=== PATIENT | male | born 1990 | race Caucasian/White ===

== ENCOUNTER → 2016-05-24 | Outpatient (CLI) | payer OTHER ==
--- NOTE | 2016-05-25 10:31 | SLEEPCENT ---
DATE OF STUDY: 05/24/2016 ORDERING PROVIDER: NIKOLE Werner Nocturnal polysomnography was performed for evaluation of sleep apnea syndrome symptoms in this patient with a history of snoring and excessive somnolence. 8 hours and 11 minutes of data were reviewed. There were 436 minutes of sleep identified. Sleep latency was mildly prolonged at 23 minutes. Rapid eye movement (REM) latency more so prolonged at 140 minutes. Sleep architecture showed fair progression, some fragmentation early in the study. There were three REM periods or progressive duration. Overall sleep efficiency was 89.6%. The patient's electrocardiogram (EKG) showed a sinus rhythm with an average heart rate of 56 beats per minute. Electroencephalogram (EEG) showed reasonably normal waveforms with for awake and sleep. No focal events were identified. There were only three respiratory events identified of 10 seconds in duration or greater for an apnea-hypopnea index well within normal limits at 0.4. Significant snoring was noted throughout the study, and arousals from respiratory events when arousals from snoring were included occurred 1.5 times per hour. There was some limb activity but no trains of events. Limb movement arousal index was 4.8. Oxygen saturations remained 90%. IMPRESSION: Normal nocturnal polysomnography with snoring.
== END ==
LOC: M SLEEP 19:39
PROVIDERS: ATTEND Nurse Practitioner Adult Health
DX: R06.83 Snoring (principal)

== ENCOUNTER → 2017-09-20 | Outpatient (CLI) | payer OTHER ==
[2017-09-20 11:16] LABS: INR 0.99; PROTHROMBIN TIME 13.2 SECONDS (12.4-14.5)
[2017-09-20 11:17] LABS: ALBUMIN 4.5 GM/DL (3.2-5.2); ALBUMIN/GLOBULIN RATIO 1.25 (1.00-1.93); ALKALINE PHOSPHATASE 53 U/L (45-117); ALT/SGPT 76 U/L (12-78); AST/SGOT 28 U/L (7-37); BILIRUBIN,DIRECT 0.2 MG/DL (0.0-0.2); BILIRUBIN,TOTAL 0.5 MG/DL (0.2-1.0); IRON (FE) 106 UG/DL (65-175); PERCENT SATURATION 35.9 % (19.7-50.0); TOTAL IRON BINDING CAPACITY 295 UG/DL (250-450); TOTAL PROTEIN 8.1 GM/DL (6.4-8.2)
[2017-09-21 09:14] LABS: HEPATITIS B SURFACE ANTIGEN NEGATIVE (NEGATIVE)
[2017-09-21 09:22] LABS: HEPATITIS C VIRUS ABY INDEX 0.1 INDEX (<0.8)
[2017-09-21 09:23] LABS: HEPATITIS B CORE ANTIBODY IGM NEGATIVE (NEGATIVE)
[2017-09-21 09:24] LABS: HEPATITIS A ANTIBODY IGM NEGATIVE (NEGATIVE)
[2017-09-23 00:09] LABS: ANCA-ATYPICAL <1:20 titer (Neg:<1:20); ANTI-MITOCHONDRIAL ANTIBODY 26.6 Units (0.0-20.0); ANTINUCLEAR ANTIBODIES DIRECT Negative (Negative); CERULOPLASMIN 19.7 mg/dL (16.0-31.0); CYTOPLASMIC NEUTROP AB ANCA-C <1:20 titer (Neg:<1:20); LIVER-KIDNEY MICROSOMAL ABY 0.9 Units (0.0-20.0); PERINUCLEAR AB ANCA-P <1:20 titer (Neg:<1:20); TISSUE TRANSGLUTAMINASE IgA 6 U/mL (0-3)
== END ==
LOC: M LAB 10:04
DX: R94.5 Abnormal results of liver function studies (principal)
CPT/HCPCS: 83550

== ENCOUNTER → 2017-10-11 | Outpatient (CLI) | payer OTHER ==
[2017-10-11 12:30] LABS: BASO % 0.3 % (0.0-1.0); EOS # 0.1 10^3/uL (0.0-0.50); EOS % 1.8 % (0.0-3.0); HEMATOCRIT 45.1 % (42.0-52.0); HEMOGLOBIN 15.6 g/dl (13.5-17.5); IMMATURE GRANULOCYTE % 0.3 % (0-3.0); LYMPH # 1.3 10^3/uL (1.5-6.5); MEAN CORPUSCULAR HEMOGLOBIN 29.9 pg (27.0-33.0); MEAN CORPUSCULAR HGB CONC 34.6 g/dl (32.0-36.5); MEAN CORPUSCULAR VOLUME 86.4 fl (80.0-96.0); MONO # 0.4 10^3/uL (0.0-0.8); MONO % 10.8 % (0.0-5.0); NEUTROPHILS % 51.8 % (36.0-66.0); PLATELET COUNT, AUTOMATED 236 10^3/uL (150-450); RED BLOOD COUNT 5.22 10^6/uL (4.30-6.10); RED CELL DISTRIBUTION WIDTH 12.5 % (11.5-14.5); WHITE BLOOD COUNT 3.8 10^3/uL (4.0-10.0)
[2017-10-11 12:38] LABS: INR 0.94; PROTHROMBIN TIME 12.7 SECONDS (12.4-14.5)
== END ==
LOC: M LAB 11:55
DX: R94.5 Abnormal results of liver function studies (principal)
CPT/HCPCS: 85610

== ENCOUNTER → 2017-10-19 | Outpatient (CLI) | payer OTHER ==
[~2017-10-19] MED LIST: ACETAMINOPHEN 325 MG TAB As Ordered; LIDOCAINE 1% MDV 20ML VIAL As Ordered
== END ==
LOC: M RADPRO 07:52
DX: K76.0 Fatty (change of) liver, not elsewhere classified (principal); R94.5 Abnormal results of liver function studies; Z79.899 Other long term (current) drug therapy
CPT/HCPCS: 47000

== ENCOUNTER 2017-10-27 08:01 | Day surgery (SDC) | payer OTHER ==
[2017-10-27] MEDS ORDERED: PROPOFOL 200 MG/20 ML VIAL As Ordered ×2 (08:27→08:43)
[2017-10-27] MEDS ORDERED: NS 1,000 ML IV (08:30)
== END 2017-10-27 09:24 | disposition home or self-care (01) ==
LOC: M OPP 08:01
DX: Z13.810 Encounter for screening for upper gastrointestinal disorder (principal); Z14.8 Genetic carrier of other disease; R76.8 Other specified abnormal immunological findings in serum; K22.8 Other specified diseases of esophagus; K76.0 Fatty (change of) liver, not elsewhere classified; R10.11 Right upper quadrant pain; F41.9 Anxiety disorder, unspecified; F32.9 Major depressive disorder, single episode, unspecified; R06.83 Snoring; F17.220 Nicotine dependence, chewing tobacco, uncomplicated; Z79.899 Other long term (current) drug therapy; Z80.3 Family history of malignant neoplasm of breast; Z80.1 Family history of malignant neoplasm of trachea, bronchus and lung; Z80.8 Family history of malignant neoplasm of other organs or systems
CPT/HCPCS: 43239

== ENCOUNTER 2018-02-04 20:53 | Emergency (ER) | payer OTHER ==
[2018-02-04] MEDS: KETOROLAC 30 MG/ML VIAL (J1885) IV (22:40)
[2018-02-04 22:46] LABS: BASO % 0.3 % (0.0-1.0); EOS # 0.1 10^3/uL (0.0-0.50); EOS % 1.9 % (0.0-3.0); HEMATOCRIT 45.8 % (42.0-52.0); HEMOGLOBIN 15.3 g/dl (13.5-17.5); IMMATURE GRANULOCYTE % 0.3 % (0-3.0); LYMPH # 1.9 10^3/uL (1.5-6.5); LYMPH % 50.3 % (24.0-44.0); MEAN CORPUSCULAR HEMOGLOBIN 29.6 pg (27.0-33.0); MEAN CORPUSCULAR HGB CONC 33.4 g/dl (32.0-36.5); MEAN CORPUSCULAR VOLUME 88.6 fl (80.0-96.0); MONO # 0.5 10^3/uL (0.0-0.8); MONO % 12.6 % (0.0-5.0); NEUTROPHILS # 1.3 10^3/uL (1.8-7.7); NEUTROPHILS % 34.6 % (36.0-66.0); PLATELET COUNT, AUTOMATED 264 10^3/uL (150-450); RED BLOOD COUNT 5.17 10^6/uL (4.30-6.10); RED CELL DISTRIBUTION WIDTH 12.4 % (11.5-14.5); WHITE BLOOD COUNT 3.7 10^3/uL (4.0-10.0)
[2018-02-04 23:30] LABS: ALBUMIN 4.4 GM/DL (3.2-5.2); ALBUMIN/GLOBULIN RATIO 1.29 (1.00-1.93); ALKALINE PHOSPHATASE 55 U/L (45-117); ALT/SGPT 67 U/L (12-78); ANION GAP 6 MEQ/L (8-16); AST/SGOT 34 U/L (7-37); BILIRUBIN,TOTAL 0.4 MG/DL (0.2-1.0); BLOOD UREA NITROGEN 11 MG/DL (7-18); C REACTIVE PROTEIN QUANTITATIV < 0.30 MG/DL (0.00-0.30); CALCIUM LEVEL 9.6 MG/DL (8.5-10.1); CARBON DIOXIDE LEVEL 30 MEQ/L (21-32); CHLORIDE LEVEL 105 MEQ/L (98-107); CREATININE FOR GFR 0.96 MG/DL (0.70-1.30); GAMMA GLUTAMYLTRANSPEPTIDASE 32 U/L (15-85); GLOMERULAR FILTRATION RATE > 60.0 (>60); GLUCOSE, FASTING 77 MG/DL (70-100); SODIUM LEVEL 141 MEQ/L (136-145); TOTAL PROTEIN 7.8 GM/DL (6.4-8.2)
[2018-02-05] MEDS: NORCO 5/325MG TABLET (BULK FOR ED) PO (00:47)
== END 2018-02-05 01:01 | disposition home or self-care (01) ==
LOC: M ED 02-05 01:01
DX: R10.11 Right upper quadrant pain (principal); R19.7 Diarrhea, unspecified; F33.9 Major depressive disorder, recurrent, unspecified; Z79.899 Other long term (current) drug therapy
CPT/HCPCS: J1885

== ENCOUNTER 2018-04-10 17:09 | Emergency (ER) | payer OTHER ==
[2018-04-10 18:55] LABS: BASO % 0.2 % (0.0-1.0); EOS # 0.1 10^3/uL (0.0-0.50); EOS % 1.5 % (0.0-3.0); HEMATOCRIT 46.9 % (42.0-52.0); HEMOGLOBIN 15.8 g/dl (13.5-17.5); IMMATURE GRANULOCYTE % 0.2 % (0-3.0); LYMPH # 1.8 10^3/uL (1.5-6.5); LYMPH % 44.7 % (24.0-44.0); MEAN CORPUSCULAR HEMOGLOBIN 29.7 pg (27.0-33.0); MEAN CORPUSCULAR HGB CONC 33.7 g/dl (32.0-36.5); MEAN CORPUSCULAR VOLUME 88.2 fl (80.0-96.0); MONO # 0.4 10^3/uL (0.0-0.8); MONO % 8.5 % (0.0-5.0); NEUTROPHILS # 1.9 10^3/uL (1.8-7.7); NEUTROPHILS % 44.9 % (36.0-66.0); PLATELET COUNT, AUTOMATED 285 10^3/uL (150-450); RED BLOOD COUNT 5.32 10^6/uL (4.30-6.10); RED CELL DISTRIBUTION WIDTH 12.7 % (11.5-14.5); WHITE BLOOD COUNT 4.1 10^3/uL (4.0-10.0)
[2018-04-10 19:23] LABS: ALBUMIN 4.6 GM/DL (3.2-5.2); ALBUMIN/GLOBULIN RATIO 1.35 (1.00-1.93); ALKALINE PHOSPHATASE 66 U/L (45-117); ALT/SGPT 46 U/L (12-78); ANION GAP 6 MEQ/L (8-16); AST/SGOT 28 U/L (7-37); BILIRUBIN,DIRECT 0.1 MG/DL (0.0-0.2); BILIRUBIN,TOTAL 0.5 MG/DL (0.2-1.0); BLOOD UREA NITROGEN 10 MG/DL (7-18); CALCIUM LEVEL 9.9 MG/DL (8.5-10.1); CARBON DIOXIDE LEVEL 31 MEQ/L (21-32); CHLORIDE LEVEL 102 MEQ/L (98-107); CREATININE FOR GFR 1.01 MG/DL (0.70-1.30); GLOMERULAR FILTRATION RATE > 60.0 (>60); GLUCOSE, FASTING 90 MG/DL (70-100); LIPASE 92 U/L (73-393); POTASSIUM SERUM 4.3 MEQ/L (3.5-5.1); SODIUM LEVEL 139 MEQ/L (136-145)
[2018-04-10] MEDS: NS 1,000 ML IV (19:24)
[2018-04-10] MEDS: ONDANSETRON 4MG/2ML VIAL (J2405) IV (19:24)
[2018-04-10] MEDS: MORPHINE 4 MG/ML 1ML VIAL/SYRINGE (J2270) IV ×2 (19:24→20:22)
[2018-04-10] MEDS ORDERED: ISOVUE-370 76% 100ML VIAL (Q9967) As Ordered (21:46)
[2018-04-10] MEDS: NORCO 5/325MG TABLET (BULK FOR ED) PO (23:00)
== END 2018-04-10 23:04 | disposition home or self-care (01) ==
LOC: M ED 17:09
DX: R10.10 Upper abdominal pain, unspecified (principal); F33.9 Major depressive disorder, recurrent, unspecified; F41.9 Anxiety disorder, unspecified; Z79.899 Other long term (current) drug therapy; F17.220 Nicotine dependence, chewing tobacco, uncomplicated
CPT/HCPCS: J2270

== ENCOUNTER 2018-08-25 10:12 | Emergency (ER) | payer OTHER ==
[~2018-08-25] VITALS: Ht 154.9 cm; Wt 102.7 kg
[~2018-08-25 10:12] MED LIST changes: -ACETAMINOPHEN 325 MG TAB As Ordered; +CONC36TA4 PO; +HYDR-3715 PO; +IBUP-1114 PO; -LIDOCAINE 1% MDV 20ML VIAL As Ordered; +OMEP40CA2 PO; +PROZ20CA11 PO; +URSO300C3 PO; +ZOFR4TAB14 PO
[2018-08-25] MEDS ORDERED: RISP0.253 (10:38)
[2018-08-25] MEDS ORDERED: PRAZ1CAP PO (10:38)
[2018-08-25] MEDS ORDERED: LORazepam 2 MG/ML VIAL (J2060) IV STA (11:36)
[2018-08-25 12:11] LABS: BASO % 0.5 % (0.0-1.0); EOS # 0.1 10^3/uL (0.0-0.50); EOS % 3.4 % (0.0-3.0); HEMATOCRIT 48.2 % (42.0-52.0); HEMOGLOBIN 16.9 g/dl (13.5-17.5); LYMPH # 1.7 10^3/uL (1.5-6.5); LYMPH % 43.4 % (24.0-44.0); MEAN CORPUSCULAR HEMOGLOBIN 30.5 pg (27.0-33.0); MEAN CORPUSCULAR HGB CONC 35.1 g/dl (32.0-36.5); MEAN CORPUSCULAR VOLUME 86.8 fl (80.0-96.0); MONO # 0.5 10^3/uL (0.0-0.8); NEUTROPHILS # 1.5 10^3/uL (1.8-7.7); NEUTROPHILS % 38.2 % (36.0-66.0); PLATELET COUNT, AUTOMATED 262 10^3/uL (150-450); RED BLOOD COUNT 5.55 10^6/uL (4.30-6.10); WHITE BLOOD COUNT 3.9 10^3/uL (4.0-10.0)
[2018-08-25 12:34] LABS: ALBUMIN 4.6 GM/DL (3.2-5.2); ALT/SGPT 91 U/L (12-78); BILIRUBIN,DIRECT 0.1 MG/DL (0.0-0.2); BILIRUBIN,TOTAL 0.6 MG/DL (0.2-1.0); BLOOD UREA NITROGEN 12 MG/DL (7-18); CALCIUM LEVEL 9.6 MG/DL (8.5-10.1); CARBON DIOXIDE LEVEL 28 MEQ/L (21-32); CHLORIDE LEVEL 106 MEQ/L (98-107); CPK CREATINE PHOSPHOKINASE 95 U/L (39-308); CREATININE FOR GFR 0.97 MG/DL (0.70-1.30); GLOMERULAR FILTRATION RATE > 60.0 (>60); GLUCOSE, FASTING 79 MG/DL (70-100); POTASSIUM SERUM 3.7 MEQ/L (3.5-5.1); SODIUM LEVEL 141 MEQ/L (136-145); TOTAL PROTEIN 8.2 GM/DL (6.4-8.2)
--- NOTE | 2018-08-25 13:08 | REP ---
MR angiography the brain without contrast: History: Tremors . Weakness. Technique: 3-D [id number] MR angiography of the brain is acquired in the usual fashion and maximal intensity projection images were generated in rotational format about the vertical and horizontal axes. In addition, source axial T1-weighted images are viewed in cine mode. MR angiographic findings: The left distal vertebral artery is not seen. The right distal vertebral artery is patent and unremarkable. Basilar artery is a little tortuous but widely patent. The posterior cerebral and superior cerebellar vessels are normal and symmetric. The right posterior cerebral artery takes a persistent origin from the distal ICA, which is a common normal variant. The distal internal carotid arteries are unremarkable. Anterior and middle cerebral arteries appear intact. There is no visible carr aneurysm or arteriovenous malformation. Impression: The left distal vertebral artery is not seen. The right posterior cerebral artery takes a persistent origin from the anterior circulation. Otherwise unremarkable MR angiography the brain. Electronically Signed by Imtiaz Kern MD 08/25/2018 01:00 P
--- NOTE | 2018-08-25 14:29 | REP ---
MRI brain without contrast: History: Tremors and weakness. No comparison imaging. Technique: Axial and sagittal imaging planes are utilized for T1 and T2-weighted scans. Sequences include spin-echo, fast spin echo, FLAIR, and diffusion weighted sequences. MRI findings: The bony calvarium is intact. Craniocervical junction upper cervical cord are normal in appearance. There is no MR evidence of significant paranasal sinus disease. No intraorbital abnormality is seen. Lateral, third, and fourth ventricles are normal in size and position. Villarreal-white differentiation pattern is normal above and below the tentorium. Diffusion weighted scans show no evidence of restricted diffusion. There is no evidence of infarct, mass, extra-axial fluid collection, or midline shift. Impression: Normal brain MRI study. Electronically Signed by Imtiaz Kern MD 08/25/2018 02:21 P
[2018-08-25 14:35] LABS: AMPHETAMINES LEVEL URINE NEGATIVE (NEGATIVE); BARBITURATES URINE NEGATIVE (NEGATIVE); BENZODIAZEPINES URINE NEGATIVE (NEGATIVE); CANNABINOIDS URINE NEGATIVE (NEGATIVE); COCAINE METABOLITE URINE NEGATIVE (NEGATIVE); METHADONE URINE NEGATIVE (NEGATIVE); OPIATES URINE NEGATIVE (NEGATIVE); PHENCYCLIDINE URINE NEGATIVE (NEGATIVE)
--- NOTE | 2018-08-25 14:42 | REP ---
MRI LUMBAR SPINE WITHOUT CONTRAST: HISTORY: Tremors, weakness. Comparison is made with imaging from CT abdomen study dated April 10, 2018. TECHNIQUE: Sagittal and axial T1- and T2-weighted scans are acquired in the usual fashion with and without fat saturation. Sequences include spin echo, turbo spin-echo, and STIR imaging sequences. MRI FINDINGS: Lumbar vertebral body heights are preserved. Alignment is normal. Cortical and medullary bone signal intensity are normal. There are some mild reactive marrow changes on either side of the narrowed L5-S1 disc. The tip of the conus medullaris is normal in position and appearance at L1. No extra vertebral abnormality is observed. Axial and sagittal images taken at the L5-S1 level demonstrate central disc bulging. This effaces the ventral epidural fat but does not compress the thecal sac. There is mild facet hypertrophy bilaterally at L5-S1. No neural foraminal encroachment is seen. There is no evidence of spondylolysis or spondylolisthesis. The disc bulging and disc narrowing appear to be unchanged from the CT study April 10, 2018. At L4-5, there is minimal central disc bulging indenting the ventral margin of the thecal sac subtly. No central canal stenosis or neural foraminal narrowing is seen. Facets are unremarkable. At L3-4, L2-3, and L1-2, there is no observable abnormality. IMPRESSION: Mild central disc bulging L4-5 and diffuse disc bulging L5-S1. Mild facet hypertrophy L5-S1 bilaterally. Otherwise unremarkable. Electronically Signed by Imtiaz Kern MD 08/25/2018 08:06 P
[2018-08-25 15:01] VITALS: BP 109/59
== END 2018-08-25 15:15 | disposition home or self-care (01) ==
LOC: M ED 10:12
DX: R20.0 Anesthesia of skin (principal); K58.9 Irritable bowel syndrome, unspecified; Z79.899 Other long term (current) drug therapy; F17.210 Nicotine dependence, cigarettes, uncomplicated
CPT/HCPCS: 70544; 70551; 72148; 80048; 80076; 80307; 82550; 85025; 96374; 99284; J2060